=== PATIENT | female | born 1995 | race Caucasian/White ===

== ENCOUNTER 2020-07-11 12:11 | Emergency (ER) | payer OTHER, SELFPAY ==
[2020-07-11 12:21] VITALS: BP 158/117; PULSE 130; RESP 14; TEMP 36.8; O2SAT 98; BMI 24.4
[2020-07-11] MEDS: sodium chloride 0.9% 1,000 ML 999 ML IV (13:01)
[2020-07-11] MEDS: ondansetron 2 mg/ML SDV 2 mL 4 MG IVP (13:06)
[2020-07-11 13:07] VITALS: BP 155/114; PULSE 107; RESP 15; O2SAT 98
--- NOTE | 2020-07-11 13:08 | PC.NURSE ---
pt c/o ruq pain and vomiting since . denies black/bloody stools. denies diarrhea.
[2020-07-11 13:11] LABS: Basophils # 0.1 10^3/uL (0.0-0.1); Basophils % 0.4 %; Eosinophils # 0.1 10^3/uL (0.0-0.8); Eosinophils % 0.7 %; Hematocrit 50.3 % (37.0-47.0); Lymphocytes # 2.4 10^3/uL (0.8-4.8); Lymphocytes % 14.4 %; Mean Corpuscular HGB Conc 35.8 g/dL (30.0-36.0); Mean Corpuscular Hemoglobin 33.1 pg (28.0-34.0); Mean Corpuscular Volume 92.6 fL (81-99); Mean Platelet Volume 10.4 fL (7.4-10.4); Monocytes # 1.4 10^3/uL (0.2-0.9); Neutrophils % 76.1 %; Nucleated Red Blood Cells % 0 %; Platelet Count 351 10^3/cmm (130-400); Red Blood Count 5.43 10^6/uL (4.1-5.3); Red Cell Distribution Width 11.1 % (12.1-15.1); White Blood Count 16.8 10^3/uL (4.0-10.0)
--- NOTE | 2020-07-11 13:19 | ED_ITS ---
HPI - Abdominal Pain General: Chief Complaint: Abdominal Pain Stated Complaint: N/V, UNABLE TO KEEP ANYTHING DOWN, CRAMPING Time Seen by Provider: 07/11/20 12:22 Source: patient and family (Significant other) Mode of arrival: ambulatory Limitations: no limitations History of Present Illness: HPI narrative: The patient is a 25 year old who presents with abdominal pain that started while she was sleeping. He was following by vomiting and she has vomited several times in the intervening days. Abdominal pain is epigastric. She says she is unable to keep anything down. She denies any diarrhea or constipation. She smokes cigarettes and drinks a lot of caffeine but does not use NSAIDs. MD elicited complaint: abdominal pain Pertinent past history: none Onset (ago): day(s) (3) Pain Consistency: constant Location: Epigastric Severity: severe Quality: sharp Radiation: none Migration to: no migration Exacerbating factors: eating Relieving factors: nothing Context: other (had the COVID vaccine the day before) Associated Symptoms: Reports nausea and vomiting; Denies anorexia, belching, bloating, change in bowel habits, change in stool character, chills, coffee ground emesis, constipation, GI cramping, diarrhea, dyspepsia, dysuria, excessive flatus, fever(s), heartburn, hematochezia, hematuria, hematemesis, fecal incontinence, loose stools, melena, poor appetite and syncope Review of Systems General: Reports: 10 or more systems reviewed and unremarkable except in HPI and below Const: Denies: fever(s) or chills Eyes: Denies: change in vision or blurry vision ENMT: Denies: throat pain, enlarged tonsils, odynophagia, hoarseness, mouth pain or swelling of lips/tongue Card: Denies: syncope Resp: Denies: dyspnea, productive cough or non-productive cough GI: Reports: nausea and vomiting; Denies: hematemesis, coffee ground emesis, heartburn, diarrhea, constipation, bloating, GI cramping, belching, excessive flatus, fecal incontinence, change in bowel habits, change in stool character, hematochezia or melena : Denies: dysuria or hematuria Musc: Denies: neck pain, back pain or extremity swelling Skin/Breast: Denies: rash, pruritus or erythema Neuro: Denies: headache(s), numbness in extremities or weakness in extremities Endo: Denies: polyuria, polydipsia or tired all the time PFSH ED PFSH: Social History Smoking and tobacco status: current every day smoker cigarettes Packs smoked per day: 0.5 Years cigarettes smoked: 10 Quit status (tobacco): has tried quititng Number of times tried to quit tobacco: 2 Second hand smoke exposure: No Current gender identity: Female Physical Exam Const: COMMON NORMALS: no acute distress, average body habitus, patient oriented x3, no limitations, healthy appearing, alert and well nourished HENMT: COMMON NORMALS: normocephalic, atraumatic and moist oral mucous membranes HEAD & SCALP: normocephalic and atraumatic Neck/C-Spine: COMMON NORMALS: no meningeal signs and no JVD Resp: COMMON NORMALS: normal respiratory effort, No retractions, No use of accessory muscles, clear to auscultation bilaterally and percussion normal AUSCULTATION: clear to auscultation bilaterally PERCUSSION: percussion normal Cardio: COMMON NORMALS: no JVD, regular rate, regular rhythm, S1 normal heart sound present, S2 normal heart sound present, No gallops present (Cardio), No clicks present (Cardio), No murmurs present (Cardio), No rub (Cardio) and Peripheral pulses 2+ throughout RATE: regular rate RHYTHM: regular rhythm HEART SOUNDS: S1 normal heart sound present and S2 normal heart sound present PERIPHERAL PULSES: Peripheral pulses 2+ throughout GI: COMMON NORMALS: Normal to inspection, nondistended, normoactive bowel sounds present, Soft to palpation, No hepatosplenomegaly present, no masses and no bruits PALPATION: Yes Soft to palpation, Yes Tenderness to palpation present (GI) (epigastric) and Yes No hepatosplenomegaly present Extremity: COMMON NORMALS: normal to inspection, full ROM, capillary refill normal, no calf tenderness and no pedal edema Neuro: COMMON NORMALS: patient oriented x3 SENSORIUM/ORIENTATION: Yes alert MENINGEAL SIGNS: Yes no meningeal signs Skin: COMMON NORMALS: no rashes or lesions noted, no wounds, turgor normal, no jaundice, no petechiae and no mottling GENERAL SKIN EXAM: no rashes or lesions noted and turgor normal Course Reevaluation(s): Reevaluation #1: Discussed her lab and imaging findings with her. She has mild leukocytosis, and mildly elevated bilirubin. Ultrasound of her gallbladder was negative for acute findings. I believe that her symptoms are consistent with gastritis and she will be treated as such. She will be discharged home with oral PPI and sucralfate. She is given dietary advice on how to avoid exacerbation of gastritis. She voiced understanding and is in agreement with the plan. Time: 15:05 Vital Signs: Vital signs: Vital Signs Temperature 98.3 F 07/11/20 12:21 Pulse Rate 106 H 07/11/20 15:15 Respiratory Rate 18 07/11/20 15:15 Blood Pressure 147/100 07/11/20 15:15 Pulse Oximetry 98 07/11/20 15:15 MDM - Abdominal Pain MDM Narrative: Medical decision making narrative: 25-year-old female patient with clinical features consistent with acute gastritis. On her blood work she has mild leukocytosis and mildly elevated bilirubin. Ultrasound of the gallbladder was negative. Others unremarkable. She is discharged home with a prescription for pantoprazole and sucralfate. She is also given dietary advice. Medical Records: Attestation: I reviewed the patient's medical records. Lab Data: Attestation: I reviewed the patient's lab results. Labs: Lab Results 07/11/20 07/11/20 07/11/20 Range/Units 12:59 12:59 12:59 WBC 16.8 H (4.0-10.0) 10^3/ uL RBC 5.43 H (4.1-5.3) 10^6/u L Hgb 18.0 H (11.5-15.3) g/dL Hct 50.3 H (37.0-47.0) % MCV 92.6 (81-99) fL MCH 33.1 (28.0-34.0) pg MCHC 35.8 (30.0-36.0) g/dL RDW 11.1 L (12.1-15.1) % Plt Count 351 (130-400) 10^3/c mm MPV 10.4 (7.4-10.4) fL Neut % (Auto) 76.1 % Lymph % (Auto) 14.4 % Travis % (Auto) 8.0 % Eos % (Auto) 0.7 % Baso % (Auto) 0.4 % Neut # (Auto) 12.80 H (1.8-7.7) 10^3/u L Lymph # (Auto) 2.4 (0.8-4.8) 10^3/u L Travis # (Auto) 1.4 H (0.2-0.9) 10^3/u L Eos # (Auto) 0.1 (0.0-0.8) 10^3/u L Baso # (Auto) 0.1 (0.0-0.1) 10^3/u L Nucleated RBC % (a uto) 0 % Nucleated RBCs # 0.0 /100WBC Sodium 133 L (136-145) mmol/L Potassium 3.5 (3.5-5.1) mmol/L Chloride 89 L (98-107) mmol/L Carbon Dioxide 27 (22-29) mmol/L Anion Gap 20.5 H (5-19) BUN 12 (6-20) mg/dL Creatinine 0.5 (0.5-0.9) mg/dL GFR Calculation 149.1 H (90-130) mL/min Glucose 77 (65-115) mg/dL Calculated Osmolal ity 275 L (285-295) mOsm/k g Calcium 9.9 (8.5-10.5) mg/dL Total Bilirubin 1.7 H (0.15-1.2) mg/dL AST 16 (0-32) U/L ALT 14 (0-33) U/L Alkaline Phosphata se 95 (35-105) IU/L Total Protein 8.0 (6.6-8.7) g/dL Albumin 4.8 (3.5-5.2) g/dL Globulin 3.2 (1.3-4.6) g/dL Lipase 29 (13-60) U/L HCG, Qual Negative (Negative) Urine Color (Yellow) Urine Appearance (CLEAR) Urine pH (5-7) Ur Specific Gravit y (1.005-1.030) Urine Protein (Negative) Urine Glucose (UA) (Normal) Urine Ketones (Negative) Urine Blood (Negative) Urine Nitrate (Negative) Urine Bilirubin (Negative) Urine Urobilinogen (Negative) mg/dL Ur Leukocyte Wendi ase (Negative) Urine RBC (0-2) /hpf Urine WBC (0-5) /hpf Ur Squamous Epith Cells (0-5) /hpf Amorphous Sediment Urine Bacteria (NONE) /hpf 07/11/20 Range/Units 13:46 WBC (4.0-10.0) 10^3/ uL RBC (4.1-5.3) 10^6/u L Hgb (11.5-15.3) g/dL Hct (37.0-47.0) % MCV (81-99) fL MCH (28.0-34.0) pg MCHC (30.0-36.0) g/dL RDW (12.1-15.1) % Plt Count (130-400) 10^3/c mm MPV (7.4-10.4) fL Neut % (Auto) % Lymph % (Auto) % Travis % (Auto) % Eos % (Auto) % Baso % (Auto) % Neut # (Auto) (1.8-7.7) 10^3/u L Lymph # (Auto) (0.8-4.8) 10^3/u L Travis # (Auto) (0.2-0.9) 10^3/u L Eos # (Auto) (0.0-0.8) 10^3/u L Baso # (Auto) (0.0-0.1) 10^3/u L Nucleated RBC % (a uto) % Nucleated RBCs # /100WBC Sodium (136-145) mmol/L Potassium (3.5-5.1) mmol/L Chloride (98-107) mmol/L Carbon Dioxide (22-29) mmol/L Anion Gap (5-19) BUN (6-20) mg/dL Creatinine (0.5-0.9) mg/dL GFR Calculation (90-130) mL/min Glucose (65-115) mg/dL Calculated Osmolal ity (285-295) mOsm/k g Calcium (8.5-10.5) mg/dL Total Bilirubin (0.15-1.2) mg/dL AST (0-32) U/L ALT (0-33) U/L Alkaline Phosphata se (35-105) IU/L Total Protein (6.6-8.7) g/dL Albumin (3.5-5.2) g/dL Globulin (1.3-4.6) g/dL Lipase (13-60) U/L HCG, Qual (Negative) Urine Color Yellow (Yellow) Urine Appearance Clear (CLEAR) Urine pH 5 (5-7) Ur Specific Gravit y 1.020 (1.005-1.030) Urine Protein Neg (Negative) Urine Glucose (UA) Norm (Normal) Urine Ketones 3+ H (Negative) Urine Blood 2+ H (Negative) Urine Nitrate Negative (Negative) Urine Bilirubin 1+ H (Negative) Urine Urobilinogen 1 H (Negative) mg/dL Ur Leukocyte Wendi ase Negative (Negative) Urine RBC 0-4 H (0-2) /hpf Urine WBC Rare (0-5) /hpf Ur Squamous Epith Cells 0-4 H (0-5) /hpf Amorphous Sediment Not Reportable Urine Bacteria Trace (NONE) /hpf Imaging Data ^: US: Attestation: I personally reviewed and interpreted this imaging study as follows: Radiologist's impression: [address] [address] Ultrasound Report Signed Patient: Catarina Rabago AUnsarah #: [id number] : 1995Acct#:[id number] Age/Sex: Date: 07/11/20 Loc: ERRoom/Bed: Attending Dr: Ordering Provider/Ordering MD: [place] [facility] [place] of Service: 07/11/20 Procedure(s): US gall bladder 28317 Accession Number(s): [id number] Report Number: [id number] PROCEDURE INFORMATION: Exam: US Abdomen, Limited; Right Upper Quadrant Exam date and time: 07/11/2020 1:50 PM Age: 25 years old Clinical indication: Abdominal pain; Epigastric; Additional info: Epigastric pain, hyperbilirubinemia TECHNIQUE: Imaging protocol: US abdomen. Real time ultrasound with image documentation. Limited exam focused on the right upper quadrant. COMPARISON: No relevant prior studies available. FINDINGS: Liver: Normal. No masses. Gallbladder: Normal. No gallstones. There is no gallbladder wall thickening. Common bile duct: Normal. No stones. No dilation. Pancreas: Visualized pancreas is unremarkable. Right kidney: Normal. No mass. No hydronephrosis. Aorta: Unremarkable. IVC: Unremarkable. US/US gall bladder [id number] IMPRESSION: No acute findings. Dictated By:Eliot Mckeon Signed By:Nidia Mckeon Date/Time:07/11/20 1450 DD/ 1449 Discharge Plan Discharge Patient Disposition: Home Clinical Impression: Acute gastritis Qualifiers: Gastritis type: unspecified gastritis Gastritis bleeding: without bleeding Qualified Code(s): K29.00 - Acute gastritis without bleeding Condition: Stable Prescriptions: New Protonix 40 mg tablet,delayed release (DR/EC) 40 mg PO BID 14 Days Qty: 28 RF: 0 sucralfate 100 mg/mL suspension 1 g PO TID 14 Days Qty: 420 RF: 0 Continued fluoxetine [Prozac] 20 mg capsule 20 mg PO DAILY Qty: 30 RF: 2 Nexplanon 68 mg implant 68 mg SUBDERMAL .3 yrs RF: 0 melatonin 1 tab PO BEDTIME PRN (Reason: Sleep) RF: 0 Discharge Orders: Discharge ED (Routine); Ordered 07/11/20 Ordered By: Philip Coburn Discharge Diet: As Directed Discharge Activity: Increase activity as tolerated Patient Instructions: Gastritis (ED), Diet for Ulcers and Gastritis (ED) Activity Restrictions/Additional Instructions: Return for any new or worsening symptoms. Take the medications as prescribed. Avoid spicy foods, cigarette smoking, reduce your caffeine intake. Avoid medications like ibuprofen Aleve or naproxen. Follow-up with your primary care provider within 3 days. 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
[2020-07-11 13:23] LABS: HCG, Serum Qual Negative (Negative)
[2020-07-11 13:26] LABS: Alanine Aminotransferase 14 U/L (0-33); Albumin Level 4.8 g/dL (3.5-5.2); Alkaline Phosphatase 95 IU/L (35-105); Aspartate Amino Transferase 16 U/L (0-32); Blood Urea Nitrogen 12 mg/dL (6-20); Calcium 9.9 mg/dL (8.5-10.5); Carbon Dioxide 27 mmol/L (22-29); Chloride 89 mmol/L (98-107); Globulin 3.2 g/dL (1.3-4.6); Glomerular Filtration Rate 149.1 mL/min (90-130); Glucose 77 mg/dL (65-115); Lipase 29 U/L (13-60); Osmolality Calculated 275 mOsm/kg (285-295); Sodium 133 mmol/L (136-145); Total Bilirubin 1.7 mg/dL (0.15-1.2)
[2020-07-11 13:32] LABS: Anion Gap 20.5 (5-19); Potassium 3.5 mmol/L (3.5-5.1)
[2020-07-11] MEDS: lidocaine 2% viscous 15 ML, aluminum-mag hydrox-simethicon 30 ML, sucralfate oral liq 1 GM PO (13:39)
--- NOTE | 2020-07-11 13:44 | USR_ITS ---
PROCEDURE INFORMATION: Exam: US Abdomen, Limited; Right Upper Quadrant Exam date and time: 07/11/2020 1:50 PM Age: 25 years old Clinical indication: Abdominal pain; Epigastric; Additional info: Epigastric pain, hyperbilirubinemia TECHNIQUE: Imaging protocol: US abdomen. Real time ultrasound with image documentation. Limited exam focused on the right upper quadrant. COMPARISON: No relevant prior studies available. FINDINGS: Liver: Normal. No masses. Gallbladder: Normal. No gallstones. There is no gallbladder wall thickening. Common bile duct: Normal. No stones. No dilation. Pancreas: Visualized pancreas is unremarkable. Right kidney: Normal. No mass. No hydronephrosis. Aorta: Unremarkable. IVC: Unremarkable. US/US gall bladder [id number] IMPRESSION: No acute findings.
[2020-07-11 13:51] VITALS: BP 140/101; RESP 16; O2SAT 99
[2020-07-11 14:28] LABS: Bacteria Urine TRACE /hpf; Bilirubin Urine 1+ (Negative); Blood Urine 2+ (Negative); Glucose Urine UA Norm (Normal); Ketones Urine 3+ (Negative); Leukocyte Esterase Urine Negative (Negative); Nitrate Urine Negative (Negative); Protein Urine Neg (Negative); RBC Urine 0-4 /hpf (0-2); Squamous Epithelial Cell Urine 0-4 /hpf (0-5); Urine Appearance Clear (CLEAR); Urine Color Yellow (Yellow); Urobilinogen Urine 1 mg/dL (Negative); WBC Urine RARE /hpf (0-5); pH Urine 5 (5-7)
[2020-07-11 14:29] LABS: Add Urine Culture? No
[2020-07-11 15:15] VITALS: BP 147/100; PULSE 106; RESP 18; O2SAT 98
== END 2020-07-11 15:16 | disposition home or self-care (01) ==
PROVIDERS: Physician Assistant; Emergency Provider Family Medicine
DX: K29.00 Acute gastritis without bleeding (principal); F17.210 Nicotine dependence, cigarettes, uncomplicated
CPT/HCPCS: 12345; 76705; 80053; 81001; 83690; 84703; 85025; 96361; 96374; 99283; J2405; J7030